=== PATIENT | female | born 1975 | race Caucasian/White ===

== ENCOUNTER 2021-10-14 18:57 | Emergency (ER) | payer MEDICAID ==
[2021-10-14] MEDS ORDERED: Sodium Chloride 0.9% 10 ML Syringe FLUSH PRN (19:15)
[2021-10-14] MEDS ORDERED: Metoprolol Tartrate 5 MG/5 ML SDV IVPUSH ONE ×2 (19:32→20:27)
[2021-10-14 20:01] LABS: ANION GAP 13.9 mmol/L (5-15); CHLORIDE,CL 107 mmol/L (98-107); SODIUM,NA 144 mmol/L (136-145)
[2021-10-14 20:04] LABS: ESTIMATED GFR 107 mL/min (>=60)
[2021-10-14] MEDS ORDERED: Furosemide 40 MG/4 ML VIAL IVPUSH ONE (20:27)
[2021-10-14 20:48] VITALS: BP 152/90; PULSE 72
== END 2021-10-14 20:50 | disposition home or self-care (01) ==
LOC: KA.ED 18:57
DX: M54.2 Cervicalgia (principal); M79.602 Pain in left arm; I10 Essential (primary) hypertension; Z86.16 Personal history of COVID-19
CPT/HCPCS: 36415; 71045; 80053; 84484; 85025; 85379; 93010; 96374; 96375; 96376; 99284; 99284-25; J1940; J3490

== ENCOUNTER 2022-04-29 01:03 | Emergency (ER) | payer BC, MEDICAID ==
[2022-04-29] MEDS ORDERED: Sodium Chloride 0.9% 1,000 ML IV ONE (01:35)
[2022-04-29] MEDS ORDERED: HYDROmorphone 1 MG/ML Syringe IVPUSH ONE (01:39)
[2022-04-29] MEDS ORDERED: Ondansetron 4 MG/2 ML SDV IVPUSH ONE (01:40)
[2022-04-29 01:50] LABS: ANION GAP 12.1 mmol/L (5-15)
[2022-04-29] MEDS ORDERED: Pantoprazole 40 MG in Sodium Chloride 0.9% 100 ML IV ONE (01:58)
[2022-04-29] MEDS ORDERED: Iopamidol 755 Mg/ML 75 ML Bottle IVPUSH ONE (15:34)
[2022-04-29] MEDS ORDERED: Sodium Chloride 0.9% 50 ML IV SCH (15:45)
== END 2022-04-29 04:05 | disposition home or self-care (01) ==
LOC: KA.ED 01:03
DX: K80.20 Calculus of gallbladder without cholecystitis without obstruction (principal); K76.0 Fatty (change of) liver, not elsewhere classified; I10 Essential (primary) hypertension; I48.91 Unspecified atrial fibrillation; Z86.16 Personal history of COVID-19
CPT/HCPCS: 36415; 74177; 80053; 81001; 81025; 82150; 83690; 85025; 93005; 93010; 96361; 96365; 96375; 99284; 99284-25; C9113; J1170; J2405; J7030; Q9967

== ENCOUNTER 2022-04-29 11:44 | Emergency (ER) | payer BC, MEDICAID ==
[2022-04-29] MEDS ORDERED: Ondansetron 4 MG/2 ML SDV IVPUSH ONE (12:09)
[2022-04-29] MEDS ORDERED: HYDROmorphone 1 MG/ML Syringe IVPUSH ONE (12:11)
[2022-04-29] MEDS ORDERED: Ketorolac 30 MG/ML SDV IM ONE (12:11)
[2022-04-29] MEDS ORDERED: Iopamidol 755 Mg/ML 75 ML Bottle IVPUSH ONE (15:29)
[2022-04-29] MEDS ORDERED: Sodium Chloride 0.9% 50 ML IV SCH (15:30)
== END 2022-04-29 13:27 | disposition home or self-care (01) ==
LOC: KA.ED 11:44
DX: G44.201 Tension-type headache, unspecified, intractable (principal); I10 Essential (primary) hypertension; I48.91 Unspecified atrial fibrillation; Z86.16 Personal history of COVID-19
CPT/HCPCS: 96372; 96374; 96375; 99283-25; 99284; J1170; J1885; J2405

== ENCOUNTER 2025-01-20 12:40 | Emergency (ER) | payer BC, MEDICAID, OTHER ==
[2025-01-20] MEDS: Ondansetron 4 MG/2 ML SDV IVPUSH ONE (12:59)
[2025-01-20] MEDS: diphenhydrAMINE 50 MG/ML SDV IVPUSH ONE (13:03)
[2025-01-20] MEDS: Ketorolac 30 MG/ML SDV IVPUSH ONE (13:07)
== END 2025-01-20 14:03 | disposition home or self-care (01) ==
LOC: KA.ED 12:40
DX: G43.909 Migraine, unspecified, not intractable, without status migrainosus (principal); I10 Essential (primary) hypertension; I48.91 Unspecified atrial fibrillation; Z88.8 Allergy status to other drugs, medicaments and biological substances; Z79.899 Other long term (current) drug therapy; Z86.16 Personal history of COVID-19; Z90.710 Acquired absence of both cervix and uterus
CPT/HCPCS: 96374; 96375; 99283; 99283-25; J1200; J1885; J2405; J7030